=== PATIENT | male | born 1990 | race African-American/Black ===

== ENCOUNTER 2021-02-07 01:44 | Emergency (ER) | payer OTHER ==
[~2021-02-07] VITALS: Ht 175.3 cm; Wt 105.0 kg
[2021-02-07] MEDS ORDERED: ACETAMINOPHEN 325MG TABLET PO ONE (02:15)
[2021-02-07] MEDS ORDERED: TETANUS, DIPHTHERIA, PERTUSSIS VAC/PF 0.5ML (>7YR OLD) IM ONE (02:15)
[2021-02-07] MEDS ORDERED: AMOXICILLIN/POTASSIUM CLAVULANATE 875/125MG TAB PO ONE (03:00)
[2021-02-07] MEDS ORDERED: IBUPROFEN 600MG TABLET PO ONE (03:30)
[2021-02-07] MEDS ORDERED: LIDOCAINE HCL/PF 1% 10 MG/ML 5ML VIAL IJ ONE (03:30)
[2021-02-07] MEDS ORDERED: AMOX1TAB16 MT (03:49)
[2021-02-07] MEDS ORDERED: IBUP-2029 MT (03:49)
[2021-02-07] MEDS ORDERED: HYDR-4001 MT (03:49)
[2021-02-07 03:55] VITALS: BP 140/100
== END 2021-02-07 05:24 | disposition home or self-care (01) ==
LOC: ER 01:44
DX: S61.411A Laceration without foreign body of right hand, initial encounter (principal); X58.XXXA Exposure to other specified factors, initial encounter; Y93.89 Activity, other specified; Y92.89 Other specified places as the place of occurrence of the external cause; Y99.8 Other external cause status; Z79.899 Other long term (current) drug therapy
CPT/HCPCS: 73130; 90471; 90715; 99284; A4217; J3490; Z7610

== ENCOUNTER 2021-02-17 08:52 | Emergency (ER) | payer OTHER ==
[~2021-02-17] VITALS: Ht 175.3 cm; Wt 107.0 kg
[~2021-02-17 08:52] MED LIST: AMOX1TAB16 MT; HYDR-4001 MT; IBUP-2029 MT
[2021-02-17 08:54] VITALS: BP 129/100
== END 2021-02-17 09:56 | disposition home or self-care (01) ==
LOC: ER 08:52
DX: Z48.02 Encounter for removal of sutures (principal)
CPT/HCPCS: 99281; Z7610

== ENCOUNTER 2021-04-09 12:48 | Emergency (ER) | payer MEDICAID, OTHER ==
[~2021-04-09] VITALS: Ht 175.3 cm; Wt 107.0 kg
[2021-04-09] MEDS ORDERED: CYCLOBENZAPRINE 10MG TABLET PO ONE (14:30)
[2021-04-09] MEDS ORDERED: KETOROLAC 30MG/ML VIAL IM ONE (14:30)
[2021-04-09 14:52] VITALS: BP 132/80
[2021-04-09] MEDS ORDERED: NAPR-681 MT (15:04)
[2021-04-09] MEDS ORDERED: CYCL10TA7 MT (15:04)
== END 2021-04-09 16:13 | disposition home or self-care (01) ==
LOC: ER 14:14
DX: M54.5 Low back pain (principal); Z98.890 Other specified postprocedural states; Z79.899 Other long term (current) drug therapy
CPT/HCPCS: 96372; 99283; J1885

== ENCOUNTER 2023-08-21 11:49 | Emergency (ER) | payer MEDICAID ==
[~2023-08-21] VITALS: Ht 175.3 cm; Wt 104.0 kg
[~2023-08-21 11:49] MED LIST changes: +CYCL10TA21 MT; -IBUP-2029 MT; +NAPR-681 MT
[2023-08-21 12:05] VITALS: TEMP 98.4; O2SAT 99
[2023-08-21 14:45] VITALS: BP 130/76; PULSE 99; RESP 20
[2023-08-21] MEDS ORDERED: KETOROLAC 60MG/2ML VIAL IM ONE (14:45)
[2023-08-21] MEDS ORDERED: CYCLOBENZAPRINE 10MG TABLET PO ONE (14:45)
[2023-08-21] MEDS ORDERED: CYCL5TAB MT (15:17)
[2023-08-21] MEDS ORDERED: NAPR-1176 MT (15:17)
[2023-08-21] MEDS ORDERED: LIDO700A15 TP (15:17)
== END 2023-08-21 16:09 | disposition home or self-care (01) ==
LOC: ER 11:49
DX: M54.50 Low back pain, unspecified (principal); Z98.890 Other specified postprocedural states
CPT/HCPCS: 99283; 96372; J1885

== ENCOUNTER 2025-01-18 10:35 | Emergency (ER) | payer MEDICAID ==
[~2025-01-18] VITALS: Ht 175.3 cm; Wt 104.3 kg
[~2025-01-18 10:35] MED LIST changes: +CYCL5TAB3 MT; +LIDO700A15 TP; +NAPR-1176 MT
[2025-01-18 10:38] VITALS: O2SAT 99
[2025-01-18 10:50] VITALS: BP 128/82; PULSE 53; RESP 16; TEMP 37.1; O2SAT 98
== END 2025-01-18 12:23 | disposition left against medical advice (07) ==
LOC: ER 10:35
DX: R68.84 Jaw pain (principal); Z98.890 Other specified postprocedural states; Z53.21 Procedure and treatment not carried out due to patient leaving prior to being seen by health care provider

== ENCOUNTER 2025-01-23 11:53 | Emergency (ER) | payer MEDICAID ==
[~2025-01-23] VITALS: Ht 175.3 cm; Wt 103.4 kg
[2025-01-23 11:56] VITALS: O2SAT 97
[2025-01-23 12:02] VITALS: TEMP 36.8; O2SAT 100
[2025-01-23 12:55] VITALS: PULSE 100
[2025-01-23] MEDS: KETOROLAC 30MG/ML VIAL IM ONE (12:55)
[2025-01-23 12:56] VITALS: BP 125/77; RESP 16
[2025-01-23] MEDS: LIDOCAINE 5% PATCH TOP SCH (12:56)
[2025-01-23] MEDS: CYCLOBENZAPRINE 10MG TABLET PO ONE (12:56)
[2025-01-23] MEDS ORDERED: CYCL10TA21 MT (13:24)
[2025-01-23] MEDS ORDERED: KETO10TA2 MT (13:24)
[2025-01-23] MEDS ORDERED: LIDO700A30 TP (13:24)
== END 2025-01-23 13:47 | disposition home or self-care (01) ==
LOC: ER 11:53
DX: M51.372 Other intervertebral disc degeneration, lumbosacral region with discogenic back pain and lower extremity pain (principal); Z79.899 Other long term (current) drug therapy; Z98.890 Other specified postprocedural states
CPT/HCPCS: 99283; 72100; 96372; J1885

== ENCOUNTER 2025-05-01 09:04 | Emergency (ER) | payer MEDICAID ==
[~2025-05-01] VITALS: Ht 177.8 cm; Wt 87.0 kg
[~2025-05-01 09:04] MED LIST changes: +KETO10TA2 MT; +LIDO-53 TP; -LIDO700A15 TP; +LIDO700A30 TP
[2025-05-01 09:08] VITALS: BP 131/86; PULSE 48; RESP 16; TEMP 36.9; O2SAT 100
[2025-05-01 09:09] VITALS: O2SAT 99
== END 2025-05-01 09:45 | disposition left against medical advice (07) ==
LOC: ER 09:04
DX: M54.50 Low back pain, unspecified (principal); Z53.21 Procedure and treatment not carried out due to patient leaving prior to being seen by health care provider